=== PATIENT | female | born 1985 | race African-American/Black ===

== ENCOUNTER 2017-09-18 06:42 | Emergency (ER) | payer OTHER | END 2017-09-18 07:52 | disposition home or self-care (01) | LOC: ER 06:42 | DX: H92.02 Otalgia, left ear (principal) | CPT/HCPCS: 99282 ==

== ENCOUNTER 2018-01-20 21:10 | Emergency (ER) | payer OTHER ==
[~2018-01-20] VITALS: Ht 177.8 cm; Wt 100.7 kg
[~2018-01-20 21:10] MED LIST: CETI10TA22 PO
[2018-01-20 21:12] VITALS: BP 118/61
[2018-01-20] MEDS ORDERED: TRAM50TA PO (21:48)
[2018-01-20] MEDS ORDERED: CYCL10TA2 PO (21:48)
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
== END 2018-01-20 21:54 | disposition home or self-care (01) ==
LOC: ER 21:10
DX: M54.5 Low back pain (principal); G89.11 Acute pain due to trauma; V43.52XA Car driver injured in collision with other type car in traffic accident, initial encounter; Y93.I9 Activity, other involving external motion; Y92.488 Other paved roadways as the place of occurrence of the external cause; Y99.8 Other external cause status
CPT/HCPCS: 81025; 99282; 99283

== ENCOUNTER 2018-01-21 13:48 | Emergency (ER) | payer OTHER ==
[~2018-01-21] VITALS: Ht 175.3 cm; Wt 100.7 kg
[~2018-01-21 13:48] MED LIST changes: +CYCL10TA2 PO; +TRAM50TA PO
[2018-01-21 14:17] VITALS: BP 123/65
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
[2018-01-21 15:38] LABS: U PREG PATIENT NEGATIVE (NEG)
[2018-01-21 15:53] LABS: BILIRUBIN,URINE NEGATIVE (NEG); CLARITY,URINE CLEAR; COLOR,URINE YELLOW; NITRITE,URINE NEGATIVE (NEG); PH,URINE 5.5; PROTEIN,URINE NEGATIVE (NEG-TRACE); UROBILINOGEN,URINE 0.2 mg/dL (0.2 mg/dL)
[2018-01-21 16:00] LABS: BACTERIA,URINE MODERATE /HPF (0-FEW); RBC,URINE 0 /HPF (0-2); SQUAMOUS EPITHELIAL CELL,UR MANY /LPF; WBC,URINE 0 /HPF (0-4)
== END 2018-01-21 16:20 | disposition home or self-care (01) ==
LOC: ER 13:48
DX: M54.5 Low back pain (principal); M54.6 Pain in thoracic spine; M47.896 Other spondylosis, lumbar region; M47.894 Other spondylosis, thoracic region; M41.84 Other forms of scoliosis, thoracic region; V47.6XXA Car passenger injured in collision with fixed or stationary object in traffic accident, initial encounter; Y93.89 Activity, other specified; Y92.410 Unspecified street and highway as the place of occurrence of the external cause; Y99.8 Other external cause status
CPT/HCPCS: 72125; 72128; 72131; 81001; 81025; 87086; 99285-25

== ENCOUNTER 2018-02-07 23:00 | Emergency (ER) | payer OTHER ==
[~2018-02-07] VITALS: Ht 175.3 cm; Wt 99.8 kg
[2018-02-08 00:24] VITALS: BP 156/70
[2018-02-08 00:33] LABS: BILIRUBIN,URINE NEGATIVE (NEG); CLARITY,URINE CLEAR; COLOR,URINE YELLOW; NITRITE,URINE NEGATIVE (NEG); PH,URINE 5.5; PROTEIN,URINE NEGATIVE (NEG-TRACE)
[2018-02-08 00:47] LABS: BACTERIA,URINE MOD /HPF (0-FEW); RBC,URINE 0 /HPF (0-2); SQUAMOUS EPITHELIAL CELL,UR MANY /LPF; YEAST,URINE PRESENT /HPF
--- NOTE | 2018-02-08 00:48 | PHYS DOC ---
Past Medical History Past Medical History: No Pertinent History Past Surgical History: No Surgical History Alcohol Use: None Drug Use: None Adult General Chief Complaint Chief Complaint: VAGINAL PROBLEM HPI HPI Patient is a 32 year old female who presents with vaginal discharge. Patient states she first noticed symptoms 2 days earlier. She describes a white and sometimes clumpy discharge. She denies any new sexual partners. She denies pelvic pain. No fevers or chills. No urinary symptoms. She was on Depo-Provera until about 11 months ago and states her periods have still not regulated so she is uncertain when her last menstrual cycle was. She is sexually active. Review of Systems Review of Systems Constitutional: Denies fever HENT: Denies nasal congestion Respiratory: Denies cough or shortness of breath Cardiovascular: No additional information GI: Denies abdominal pain, nausea, emesis : Denies dysuria Musculoskeletal: Denies back pain Integument: Denies rash Neurologic: Denies headache Endocrine: Denies polyuria All other systems were reviewed and found to be within normal limits, except as documented in this note. Current Medications Current Medications Current Medications Medications (Trade) Dose Ordered Sig/[place] Start Time Stop Time Status Last Admin Dose Admin Azithromycin (Zithromax) 1,000 mg 1X ONCE 02/08/18 01:30 02/08/18 01:33 DC 02/08/18 01:33 1,000 MG Ceftriaxone Sodium (Rocephin Im) 250 mg 1X ONCE 02/08/18 01:30 02/08/18 01:33 DC 02/08/18 01:33 250 MG Fluconazole (Diflucan) 100 mg 1X ONCE 02/08/18 01:30 02/08/18 01:33 DC 02/08/18 01:33 100 MG Allergies Allergies Allergies Coded Allergies Type Severity Reaction Last Updated Verified No Known Drug Allergies 09/18/17 No Physical Exam Physical Exam Constitutional: Well developed, well nourished, no acute distress, non-toxic appearance HENT: Normocephalic, atraumatic, bilateral external ears normal, oropharynx moist Eyes: PERRLA, EOMI, conjunctiva normal Neck: Normal range of motion Cardiovascular:Heart rate regular rhythm, no murmur Lungs & Thorax: Bilateral breath sounds clear to auscultation Abdomen: Bowel sounds normal, soft, no tenderness Skin: Warm, dry, no erythema Neurologic: Alert and oriented X 3 Psychologic: Affect normal Pelvic: normal female external genitalia, vaginal mucosa is moist and uninflamed, copious clumpy white d/c is present. + some d/c from the cervical OS. No CMT. No adnexal tenderness to manipulation or masses. Current Patient Data Vital Signs Vital Signs Date Time Temp Pulse Resp B/P (MAP) Pulse Ox O2 Delivery O2 Flow Rate FiO2 02/08/18 00:24 98.4 102 20 156/70 (98) 98 Room Air 98.4 Lab Values Laboratory Tests Test 02/08/18 00:20 02/08/18 00:24 Urine Collection Type Unknown Urine Color Yellow Urine Clarity Clear Urine pH 5.5 Urine Specific [place] >=1.030 Urine Protein Negative mg/dL (NEG-TRACE) Urine Glucose (UA) Negative mg/dL (NEG) Urine Ketones (Stick) Trace mg/dL (NEG) Urine Blood Negative (NEG) Urine Nitrite Negative (NEG) Urine Bilirubin Negative (NEG) Urine Urobilinogen Dipstick 1.0 mg/dL (0.2 mg/dL) Urine Leukocyte Esterase Small (NEG) Urine RBC 0 /HPF (0-2) Urine WBC 5-10 /HPF (0-4) Urine Squamous Epithelial Cells Many /LPF Urine Bacteria Mod /HPF (0-FEW) Urine Mucus Marked /LPF Urine Yeast Present /HPF POC Urine HCG, Qualitative Hcg negative (Negative) Microbiology 02/08/18 Wet Prep - Final, Complete EKG EKG [] Radiology/Procedures Radiology/Procedures [] Course & Med Decision Making Course & Med Decision Making Pertinent Labs and Imaging studies reviewed. (See chart for details) 00:30: Patient is seen and examined. Pelvic exam completed. Accompanied by female registered nurse. GC/CHLAM sent to lab with wet mount. 01:30: All results are reviewed. The patient does not have urinary tract infection. She does have a contaminated urine sample. Her wet mount is positive for yeast. This is consistent with her physical exam. She is empirically treated this evening also for gonorrhea and chlamydia although these tests will not return for several days. I discussed the treatment with the patient and answered all of her questions prior to discharge home. Patient was specifically advised on sexual precautions and to avoid intercourse until her partner has also been screened her treated or until her test has returned negative for sexually-transmitted disease. Dragon Disclaimer Dragon Disclaimer This electronic medical record was generated, in whole or in part, using a voice recognition dictation system. Departure Departure Referrals: NO PCP (PCP) ROSALINDA DRIVER DO Feb 08, 2018 00:48
[2018-02-08] MEDS ORDERED: cefTRIAXone IM 250 MG VIAL IM ONE (01:30)
[2018-02-08] MEDS ORDERED: AZITHROMYCIN 250 MG TABLET. PO ONE (01:30)
[2018-02-08] MEDS ORDERED: FLUCONAZOLE 100 MG TABLET. PO ONE (01:30)
[2018-02-09 15:32] LABS: GC PROBE Negative (Negative)
== END 2018-02-08 01:43 | disposition home or self-care (01) ==
LOC: ER 23:00
DX: N89.8 Other specified noninflammatory disorders of vagina (principal)
CPT/HCPCS: 81001; 81025; 87491; 87591; 96372; 99284; J0696; Q0111; Q0144